=== PATIENT | female | born 1945 | race Caucasian/White ===

== ENCOUNTER → 2023-11-22 10:37 | Outpatient (REF) | payer MEDICARE, OTHER, SELFPAY ==
[2023-11-22 12:11] LABS: % Basophils 1.1 % (0-2); % Eosinophils 1.6 % (0-6); % Immature Granulocytes 0.6 % (0-0.5); % Lymphocytes 26.8 % (20.5-51.1); % Monocytes 7.5 % (1.7-9.3); % Neutrophils 62.4 % (42.2-75.2); Absolute Basophils 0.1 10^3/uL (0-0.2); Absolute Eosinophils 0.1 10^3/uL (0-0.7); Absolute Lymphocytes 1.7 10^3/uL (1.2-3.4); Absolute Monocytes 0.5 10^3/uL (0.1-0.6); Absolute Neutrophils 3.9 10^3/uL (1.4-6.5); Hematocrit 34.3 % (37.0-47.0); Hemoglobin 11.5 g/dL (12.0-16.0); Mean Corp Hgb Conc. 33.5 g/dL (33.0-37.0); Mean Corpuscular Hgb 29.9 pg (27.0-31.0); Mean Corpuscular Volume 89.1 fL (81.0-99.0); Nucleated Red Blood Cells % 0 %; Platelet Count 267 10^3/uL (130-400); Red Blood Cell Count 3.85 10^6/uL (4.20-5.40); Red Cell Dist. Width 12.8 % (11.5-14.5); White Blood Cell Count 6.2 10^3/uL (4.8-10.8)
[2023-11-22 12:15] LABS: ALT (SGPT) 17 U/L (0-35); AST (SGOT) 28 U/L (14-36); Albumin 4.2 g/dl (3.5-5.0); Alkaline Phosphatase 61 U/L (38-126); Blood Urea Nitrogen 15 mg/dl (7-17); Calcium 8.9 mg/dl (8.4-10.2); Carbon Dioxide 26 mmol/L (22-30); Chloride 104 mmol/L (98-107); Glucose 72 mg/dl (70-99); Magnesium 2.1 mg/dl (1.6-2.3); Potassium 4.5 mmol/L (3.5-5.1); Sodium 135 mmol/L (135-145); Total Bilirubin 0.4 mg/dl (0.2-1.3); Total Protein 6.5 g/dl (6.3-8.2); eGFR > 60.00
== END ==
LOC: SDSPAT 10:37
PROVIDERS: ATTENDING PHYSICIAN Internal Medicine Cardiovascular Disease; FAMILY PHYSICIAN Family Medicine; OTHER PHYSICIAN Internal Medicine Cardiovascular Disease
DX: Z01.818 Encounter for other preprocedural examination (principal); R00.1 Bradycardia, unspecified
CPT/HCPCS: 36415; 80053; 83735; 85025; 93005

== ENCOUNTER 2023-12-08 13:25 | Day surgery (SDC) | payer MEDICARE, OTHER, SELFPAY ==
[2023-11-22 11:25] VITALS: BMI 20.1
[2023-12-08] VITALS (18 sets, daily range): BP systolic 119–166; BP diastolic 51–79; BMI 20.1
[2023-12-08] MEDS: NSS 500 IV ×2 (14:00→23:05)
--- NOTE | 2023-12-08 18:22 | ITS.CL.PACE ---
Addendum entered and electronically signed by Arley Culver DO 12/10/23 19:27:
Indication:
SSS
Symptomatic irreversible bradycardia
Syncope
Original Note:
Software Applications Architect - Pacemaker Implant
Pacemaker Implant
Procedure Report:
Primary Care Doctor: Zac Pedro MD
Primary Fig Washer: Devon Hopson MD
Procedure Date: 12/08/2023
Name of procedure:
1. Placement of a dual-chamber pacemaker
2. Subclavian venography
3. ILR removal
History:
1. Patient is a 78-year-old female with a past medical history significant for paroxysmal atrial fibrillation status post PVI 2018, hypertension, hyperlipidemia, former tobacco user, COPD, aortic atherosclerosis, syncope status post ILR insertion
2020, symptomatic irreversible bradycardia, symptomatic sinus arrest pauses 3 to 4 seconds, symptomatic AV block presenting for elective dual-chamber pacemaker implantation with ILR removal.
2. Please refer to H&P for complete history.
Indication:
Symptomatic irreversible bradycardia
Symptomatic sinus arrest with 3 to 4-second pause
Intermittent high degree AV block
History of syncope
Methods:
After informed consent was obtained, the patient was brought to the EP laboratory in a postabsorptive, nonsedated state. Peripheral IV access was established. Prophylactic antibiotics were administered prior to incision. Continuous ECG, blood
pressure, and pulse oximetry were initiated. Cardioversion patch electrodes were placed on the patient's chest and back. A grounding patch was applied to the skin. Sedation was administered by anesthesia.
In order to define the extrathoracic portion of the subclavian vein and exclude significant venous obstruction or anomalous anatomy, subclavian venography was performed prior to the procedure. Using the patient's left peripheral IV, contrast was
injected and images were recorded. The left subclavian vein and SVC were found to be widely patent.
The left chest and chronic ILR site were prepared and draped in a sterile fashion. A time-out was performed. Local anesthesia was injected in the subcutaneous tissue in the infraclavicular area. An incision was made medial to the deltopectoral
groove. The subcutaneous tissue was dissected the level of the prepectoral fascia. A subcutaneous pocket was created. Under fluoroscopic guidance and with the assistance of the images from the venogram, 2 separate venipunctures were made using
micropuncture and modified Seldinger technique. These were performed in the extrathoracic portion of the subclavian vein. Guidewires were passed and two peel-away sheaths were placed, and used to advance leads into the circulation.
Using fluoroscopic guidance, the leads were positioned. The RV lead was advanced to the RV/outflow tract. Ventricular ectopy was recorded. Images were taken in FIORE and JOSE DANIEL views to ensure appropriate lead placement. The lead tip was subsequently
positioned on the apical septum. Adequate sensing and pacing parameters were found, and no diaphragmatic stimulation was seen with high-output pacing.
Next, the right atrial lead was positioned in the right atrial appendage. Adequate sensing and pacing parameters were found, and no diaphragmatic stimulation was seen with high-output pacing. Both sheaths were split, and the leads were secured to
the fascia with Ethibond ties.
The pocket was flushed with antibiotic solution and hemostasis was assured. The generator was connected to the leads and placed inside the pocket. The wound was closed with 3 running layers of absorbable suture, and steri-strips were applied.
Dressing applied over steri-strips in standard fashion.
Next we turned our attention to the ILR site. Local anesthesia was injected in the subcutaneous tissue overlying the ILR. An incision was made into the chronic scar. The subcutaneous tissue was dissected the level of the chronic capsule. The
capsule was opened and the ILR was removed.
The pocket was flushed with antibiotic solution and hemostasis was assured. Manual pressure was applied until hemostasis resulted. Topical skin adhesive was applied to the skin.
Following the procedure, the patient was taken to the recovery area in stable condition. A chest x-ray is to be obtained in the holding area/patient room.
Lead parameters and device programming:
- RA Lead (Medtronic, Model 5076, #[id number]): Sensing 2.2 mV, Pacing threshold 1.0 V at 0.4 ms, Imp 720 ohm
- RV Lead (Medtronic, Model 5076, #[id number]): Sensing 5.2 mV, Pacing threshold 0.5 V at 0.4 ms, Imp 560 ohm
- Device: Medtronic, Model W1DR01 pacemaker (#[id number]), programmed AAIR to DDDR, mode switch on, lower rate 60, upper tracking rate 130 ppm
Explanted device:
-Medtronic model: LNQ22, Serial#[id number]
Conclusions:
1. Successful placement of a dual-chamber pacemaker
2. Subclavian venography
3. Successful removal of ILR
Recommendations:
1. Admit
2. Portable chest x-ray in recovery area.
3. IV antibiotics while the patient is admitted.
4. OK to resume home medications as indicated
5. Pressure dressing to be removed in AM, aquacell to remain until wound check
6. Follow-up will be arranged in the office in 7-10 days post-discharge
Arley Culver,
Clinical Cardiac Skinning Machine Feeder
cc: Zac Pedro MD, Devon Hopson MD
[2023-12-08] MEDS: ZESTRIL 5 MG PO (20:32)
[2023-12-08] MEDS: ASPIR LOW (ENTERIC COATED) 81 MG PO (20:32)
--- NOTE | 2023-12-08 21:24 | PTCARENOTE ---
received pt from [facility] at change of shift s/p PPM. VSS, sinus rhythm on tele, + peripheral pulses, no edema. Lungs CTA, pt denies SOB or CP. +bs, tolerated PO intake, voids spontaneously. Left CW w pressure dressing intact, left arm w immobilizer in
place. Post PPM ekg and CXR completed. plan of care reviewed w the pt and questions encouraged.
[2023-12-08] MEDS: ANCEF 5 IV (23:05)
[2023-12-09 00:11] VITALS: BMI 20.1
[2023-12-09 05:11] VITALS: BP 104/55
[2023-12-09 05:43] LABS: Hematocrit 32.2 % (37.0-47.0); Hemoglobin 10.9 g/dL (12.0-16.0); Mean Corp Hgb Conc. 33.9 g/dL (33.0-37.0); Mean Corpuscular Hgb 29.7 pg (27.0-31.0); Mean Corpuscular Volume 87.7 fL (81.0-99.0); Mean Platelet Volume 10.8 fL (7.4-10.4); Platelet Count 238 10^3/uL (130-400); Red Blood Cell Count 3.67 10^6/uL (4.20-5.40); Red Cell Dist. Width 12.5 % (11.5-14.5); White Blood Cell Count 6.8 10^3/uL (4.8-10.8)
[2023-12-09] MEDS: NSS IV (05:53)
[2023-12-09 06:06] LABS: Blood Urea Nitrogen 17 mg/dl (7-17); Calcium 8.6 mg/dl (8.4-10.2); Carbon Dioxide 25 mmol/L (22-30); Chloride 106 mmol/L (98-107); Estimated Creatinine Clearance 54 ml/min; Glucose 114 mg/dl (70-99); Magnesium 2.1 mg/dl (1.6-2.3); Potassium 4.4 mmol/L (3.5-5.1); Sodium 133 mmol/L (135-145); eGFR > 60.00
[2023-12-09 08:07] VITALS: BP 115/58
[2023-12-09] MEDS: FLUSH (NSS) 2 FLUSH IV (08:52)
[2023-12-09] MEDS: ANCEF 5 IV (08:52)
--- NOTE | 2023-12-09 09:37 | W.PN.CARDCBS ---
Addendum entered and electronically signed by Alf Sol MD 12/09/23 11:18:
Patient seen and examined
Agree with BUS MATRON note and assessment
Agree BUS MATRON plan
Examination:
Pressure dressing in place although no hematoma
Telemetry demonstrates appropriate atrial pacing and capture as well as appropriate ventricular sensing
Chest x-ray demonstrates stable lead position in the atrium and ventricle and stable cardiac sweat without pneumothorax
ECGs reviewed demonstrating atrial pacing
Cor regular
Alert and x 3
Nonfocal neurologically
Impression:
Syncope/Sinus pauses
Symptomatic non reversible bradycardia
post DC PPM and ILR removal 12/08/23
PAF prior PV2018
HTN
HLD
COPD
GERD
former tobacco
Name of procedure:
1. Placement of a dual-chamber pacemaker
2. Subclavian venography
3. ILR removal
Plan:
post device, site stable pressure dressing removed
ILR site with steri strips
tele SR occ Apaced, 3b NSVT
CXR no PTX, leads in good position
HTN - continue lisinopril
Activity restrictions reviewed
inc check 1 week
home today
Original Note:
Today's Communication / Plan
-
stable for d/c home
Impression / Plan
-
PCP: Dr. Pedro
CDY: Devon Mckay MD
Impression:
Syncope/Sinus pauses
Symptomatic non reversible bradycardia
post DC PPM and ILR removal 12/08/23
PAF prior PV2018
HTN
HLD
COPD
GERD
former tobacco
Name of procedure:
1. Placement of a dual-chamber pacemaker
2. Subclavian venography
3. ILR removal
Plan:
post device, site stable pressure dressing removed
ILR site with steri strips
tele SR occ Apaced, 3b NSVT
CXR no PTX, leads in good position
HTN - continue lisinopril
Activity restrictions reviewed
inc check 1 week
home today
78-year-old female with a past medical history significant for paroxysmal atrial fibrillation status post PVI 2018, hypertension, hyperlipidemia, former tobacco user, COPD, aortic atherosclerosis, syncope status post ILR insertion 2020, symptomatic
irreversible bradycardia, symptomatic sinus arrest pauses 3 to 4 seconds, symptomatic AV block presenting for elective dual-chamber pacemaker implantation with ILR removal.
2. Please refer to H&P for complete history.
Progress Note - Benchroom Shop Optician
Subjective
Date of Service: December 09, 2023
no cp, sob, mild tenderness at site
Objective
Labs:
12/09/23 05:18
12/09/23 05:18
Labs
Hgb 10.9 g/dL (12.0-16.0) L 12/09/23 05:18
Hct 32.2 % (37.0-47.0) L 12/09/23 05:18
Plt Count 238 10^3/uL (130-400) 12/09/23 05:18
Sodium 133 mmol/L (135-145) L 12/09/23 05:18
Potassium 4.4 mmol/L (3.5-5.1) 12/09/23 05:18
BUN 17 mg/dl (7-17) 12/09/23 05:18
Creatinine 0.7 mg/dL (0.6-1.0) 12/09/23 05:18
Glucose 114 mg/dl (70-99) H 12/09/23 05:18
Vital Signs and I&O:
Vital Signs
Temp Pulse Resp BP Pulse Ox
98.6 F 60 20 115/58 97
12/09/23 08:05 12/09/23 08:07 12/09/23 08:05 12/09/23 08:07 12/09/23 08:05
Vital Signs
Temp Pulse Resp BP Pulse Ox
98.6 F 60 20 115/58 97
12/09/23 08:05 12/09/23 08:07 12/09/23 08:05 12/09/23 08:07 12/09/23 08:05
Physical Exam
Physical Exam
NAD< AOX3
S1, S2, RRR
CTAB, non labored, no wheeze
SNTND Bsx4
L CW Aquacel dressing c/d/i, no HT
linq site c/d/i, removed dressing, steri strips intact
--- NOTE | 2023-12-09 11:01 | W.DS.TRANS ---
DC Summary - Conduit Bender
-
Discharge Instructions:
Sleep Apnea Risk Low
Discharge Diagnosis/Procedures Pacemaker implant and Linq explant
Diet Low Cholesterol
Driving Restrictions No driving for 1 week
Bathing Restrictions OK to Shower
Instructions:
Stand-Alone Forms: DC Inst - Implanted Device
Changes to Home Medications: No
Discharge Medications:
DC Medications w/original date entered in [employer]
L.acidoph, paracasei,B. lactis 10 billion cell capsule 1 ea PO DAILY 12/22/18
multivitamin with folic acid 400 mcg tablet (Tab-A-Cary) 1 tab PO DAILY 12/22/18
lisinopril 5 mg tablet 5 mg PO QPM 05/12/21
ascorbic acid (vitamin C) 1,000 mg tablet (Vitamin C) 1,000 mg PO BID 11/17/23
aspirin 81 mg tablet,delayed release 81 mg PO QPM 11/17/23
magnesium 200 mg tablet 200 mg PO DAILY 11/17/23
turmeric 2,000 mg PO DAILY 11/17/23
vitamins A,C,K-mqip-scnmft 2,148 mcg-113 mg-45 mg-17.4 mg tablet (PreserVision AREDS) 1 tab PO BID 11/17/23
zinc acetate 50 mg (zinc) capsule 50 mg PO DAILY 11/17/23
Home Medication Changes
Pending Results: No
--- NOTE | 2023-12-09 11:53 | PTCARENOTE ---
Pt discharged to home w/daughter providing transportation w/personal belongings incl cell phone & clothing. monitor technician & IV line discontinued. This RN discussed D/C instructions & activity restrictions w/pt & daughter. Pt taken out via WC by
hospital volunteer.
--- NOTE | 2023-12-09 12:08 | CM ---
spoke to pt in room, she is prev indep, lives alone in a 2 story home with no steps to enter. she denies any dc plannin gneedsor dme's. plan is for dc to home when medically stable.
== END 2023-12-09 12:11 | disposition home or self-care (01) ==
LOC: CATH 13:25
PROVIDERS: Nurse Practitioner Adult Health; ATTENDING PHYSICIAN Internal Medicine Cardiovascular Disease; FAMILY PHYSICIAN Family Medicine; OTHER PHYSICIAN Internal Medicine Cardiovascular Disease
DX: I49.5 Sick sinus syndrome (principal); R55 Syncope and collapse; I10 Essential (primary) hypertension; E78.00 Pure hypercholesterolemia, unspecified; I48.0 Paroxysmal atrial fibrillation; I70.0 Atherosclerosis of aorta; I50.9 Heart failure, unspecified; J44.9 Chronic obstructive pulmonary disease, unspecified; I08.1 Rheumatic disorders of both mitral and tricuspid valves; R91.8 Other nonspecific abnormal finding of lung field; R06.09 Other forms of dyspnea; K21.9 Gastro-esophageal reflux disease without esophagitis; K64.9 Unspecified hemorrhoids; M54.30 Sciatica, unspecified side; M19.90 Unspecified osteoarthritis, unspecified site; D64.9 Anemia, unspecified; R35.1 Nocturia; H35.30 Unspecified macular degeneration; L30.9 Dermatitis, unspecified; Z87.891 Personal history of nicotine dependence; E78.5 Hyperlipidemia, unspecified; I11.0 Hypertensive heart disease with heart failure; Z87.19 Personal history of other diseases of the digestive system
CPT/HCPCS: 33208; 33286; 71045; 80048; 83735; 85027; 93005; C1785; C1892; C1898